=== PATIENT | female | born 1965 ===

== ENCOUNTER 2021-12-11 05:55 | Day surgery (SDC) | payer OTHER ==
[~2021-12-11] VITALS: Ht 160 cm; Wt 67.1 kg
== END 2021-12-11 14:35 | disposition home or self-care (01) ==
LOC: CIR.AMB 05:55
PROVIDERS: ATTEND Obstetrics & Gynecology
DX: N72 Inflammatory disease of cervix uteri (principal); N85.8 Other specified noninflammatory disorders of uterus